=== PATIENT | male | born 1950 | race Caucasian/White ===

== ENCOUNTER 2023-01-21 13:08 | Outpatient (CLI) | payer MEDICARE, BC | END 2023-01-21 13:09 | disposition home or self-care (01) | LOC: MADRAD 13:08 | PROVIDERS: ATTEND Nurse Practitioner Family | DX: I10 Essential (primary) hypertension (principal); J06.9 Acute upper respiratory infection, unspecified; R05.9 Cough, unspecified; R09.89 Other specified symptoms and signs involving the circulatory and respiratory systems; R79.89 Other specified abnormal findings of blood chemistry | CPT/HCPCS: 71046 ==